=== PATIENT | male | born 1985 | race Caucasian/White ===

== ENCOUNTER 2018-08-14 15:21 | Inpatient (IN) | payer BC ==
[2018-08-14 16:04] LABS: #Basophils 0.1 thou/uL (0.0-0.2); #Eosinphils 0.3 thou/uL (0.0-0.7); #Lymphocytes 2.9 thou/uL (1.20-3.40); #Neutrophils 8.8 thou/uL (1.40-6.50); %Basophils 0.7 % (0.0-1.0); %Eosinophils 2.3 % (0.0-10.0); %Monocytes 7.8 % (0.0-10.0); %Neutrophils 67.2 % (42.0-75.0); Hemoglobin 15.1 g/dL (14.0-18.0); Mean Corpuscular HGB CONC 33.3 g/dL (32.0-36.0); Mean Corpuscular Hemoglobin 30.8 pg (27.0-31.0); Mean Corpuscular Volume 92.4 fL (78.0-98.0); Mean Platelet Volume 6.9 fL (7.4-10.4); Platelet Count 248 thou/uL (130-400); RBC Distribution Width 11.5 % (11.5-14.5); Red Blood Cell (RBC) Count 4.89 mill/uL (4.70-6.10); White Blood Cell (WBC) Count 13.1 thou/uL (4.8-10.8)
[2018-08-14 16:27] LABS: ALT (SGPT) 25 U/L (8-55); AST (SGOT) 15 U/L (5-34); Albumin 4.5 g/dL (3.5-5.0); Alkaline Phosphatase 91 U/L (40-150); Anion Gap 12 mmol/L (10-20); BUN (Urea Nitrogen) 12 mg/dL (8.9-20.6); Bilirubin, Total 0.2 mg/dL (0.2-1.2); Calc. Creatinine Clearance 0 mL/min (70-130); Calcium 9.5 mg/dL (7.8-10.44); Carbon Dioxide 24 mmol/L (22-29); Chloride 106 mmol/L (98-107); Estimated GFR-MDRD Greater than 90; Globulin 2.3 g/dL (2.4-3.5); Glucose 93 mg/dL (70-105); Lipase 46 U/L (8-78); Potassium 4.3 mmol/L (3.5-5.1); Protein, Total 6.8 g/dL (6.0-8.3); Sodium 138 mmol/L (136-145)
[2018-08-14] MEDS ORDERED: Iopamidol 370 76% 50 ML VIAL FS ONE (16:50)
[2018-08-14] MEDS ORDERED: ISOVUE-370 76%-LOCM 1 ML ONE (16:50)
--- NOTE | 2018-08-14 18:24 | CT ---
ABDOMEN CT WITH CONTRAST PELVIC CT WITH CONTRAST 08/14/18 HISTORY: Right lower quadrant pain. COMPARISON: None. FINDINGS: ABDOMEN CT: Lung bases are clear. Normal heart size. Unremarkable aorta. Portal vein and gallbladder are unremark able. Appropriate enhancement of the solid organs. No gastrohepatic, retrocrural or periportal lymphadenopathy. Symmetric enhancement of the kidneys. No obstructive uropathy. No mesenteric mass, lymphadenopathy or free air. There is a small amount of fluid in the right monse lic gutter. Gastric mucosa, duodenum, and multiple normal caliber small bowel loops are identified. Ileocecal erika ction is normal. Dilated appendix measuring 7 mm with periappendicele fat stranding. No evidence of abscess or perforation. Unremarkable colon. CT PELVIS: Unremarkable urinary bladder. No pelvic mass, lymphadenopathy, free air or free fluid. No lytic or bl astic lesions. IMPRESSION: Appendicitis. Results of the study discussed with Dr. Beebe 08/14/18 at 6:13 p.m. Code CR POS: JEN
[2018-08-14 18:36] LABS: Bilirubin Negative (Negative); Blood, Urine Negative (Negative); Clarity CLEAR (Clear); Glucose, Urine (Dipstick) Negative (Negative); Leukocyte Negative (Negative); Nitrite Negative (Negative); Protein, Urine (Dipstick) Negative (Neg-Trace); Specific Gravity, Urine 1.009 (1.002-1.036); Urobilinogen 0.2 mg/dL (0.2-1.0); pH, Urine 6.5 (5.0-9.0)
[2018-08-14] MEDS ORDERED: Piperacillin/Tazobactam 3.375 GM VIAL ONE (19:04)
[2018-08-14] MEDS ORDERED: Dextrose 5 % And 0.9 % NaCl 1,000 ML IV SCH (21:00)
[2018-08-14 21:05] VITALS: BMI 22.6
[2018-08-14] MEDS ORDERED: Ketorolac Tromethamine 30 MG/ML VIAL IVP PRN (21:29)
[2018-08-14] MEDS ORDERED: Enoxaparin Sodium 40 MG/0.4 ML SYRINGE SC SCH (21:30)
[2018-08-14] MEDS ORDERED: Acetaminophen 1,000 MG in Premix Bag 1 BAG IVPB PRN (21:30)
[2018-08-14] MEDS: Lactated Ringer's 1,000 ML IV SCH (22:06)
[2018-08-15] MEDS ORDERED: Piperacillin/Tazobactam 3.375 GM in Sodium Chloride 0.9% 100 ML IVPB SCH (02:00)
[2018-08-15] MEDS: Lactated Ringer's 1,000 ML IV SCH (06:46)
[2018-08-15] MEDS ORDERED: Bupivacaine HCl 0.5%/Epinephrine 1:200,000/PF 30 ml Vial ONE (07:41)
[2018-08-15] MEDS ORDERED: Fentanyl 100 MCG/2 ML VIAL ONE (07:46)
[2018-08-15] MEDS ORDERED: Piperacillin/Tazobactam 3.375 GM VIAL ONE (08:05)
[2018-08-15] MEDS ORDERED: Sodium Chloride 0.9% 100 ML ONE (08:05)
[2018-08-15] MEDS ORDERED: Ketorolac Tromethamine 30 MG/ML VIAL ONE (08:05)
[2018-08-15] MEDS ORDERED: Midazolam HCl 2 mg/2 ml Vial ONE (08:10)
[2018-08-15] MEDS ORDERED: traMADol HCl 50 MG TAB PO PRN ×2 (08:10)
[2018-08-15] MEDS ORDERED: Acetaminophen 500 MG TAB PO PRN (08:10)
[2018-08-15] MEDS ORDERED: Ibuprofen 600 MG TAB PO PRN (08:10)
[2018-08-15] MEDS ORDERED: Famotidine/PF 20 mg/2ml Vial ONE (08:10)
[2018-08-15] MEDS ORDERED: Promethazine HCl 25 MG/ML VIAL IM PRN (09:03)
[2018-08-15] MEDS ORDERED: HYDROmorphone 2 MG/ML VIAL SLOW IVP PRN (09:03)
[2018-08-15] MEDS ORDERED: Promethazine HCl 25 MG/ML VIAL SLOW IVP PRN (09:03)
[2018-08-15] MEDS ORDERED: Meperidine HCl/PF 25 MG/ML VIAL SLOW IVP PRN (09:03)
--- NOTE | 2018-08-15 09:28 | HP ---
HISTORY OF PRESENT ILLNESS: Parveen Hurtado is a 32-year-old male patient with 24-hour history of right lower quadrant pain, increased pain with movement, but has not suffered anorexia, nausea, or vomiting. He presents to the emergency room, noted to have a white count of 13 and hemoglobin 15. Basic metabolic profile normal. CAT scan revealing changes consistent with appendicitis. He is hospitalized overnight, given intravenous antibiotics, analgesics, and plan is for laparoscopic video appendectomy today. ALLERGIES: NONE. TOBACCO: One pack per day. ALCOHOL: Rarely. MEDICATIONS: Vyvanse. PAST SURGICAL HISTORY: Noncontributory. PAST MEDICAL HISTORY: ADHD. REVIEW OF SYSTEMS: 10-point noncontributory. PHYSICAL EXAMINATION: VITAL SIGNS: 97.9, 68, 108/68, and 114/69. 5 feet 10 inches, 158 pounds, 22 BMI. HEAD, EARS, EYES, NOSE, AND THROAT: Unremarkable. LUNGS: Clear to auscultation. CARDIAC: Regular rate and rhythm. No murmur or gallop. ABDOMEN: Soft. Tenderness in right lower quadrant, guarding, rebound. EXTREMITIES: Unremarkable. NEUROLOGICAL: No focal deficit. No ankle edema. No lymphadenopathy. ASSESSMENT AND PLAN: Appendicitis. Recommend laparoscopic video appendectomy. Risks and benefits explained. He consents. Job ID: [id number]
--- NOTE | 2018-08-15 09:31 | DIS ---
DATE OF ADMISSION: 08/14/2018 DATE OF DISCHARGE: 08/15/2018 DISCHARGE DIAGNOSIS: Appendicitis. PROCEDURE PERFORMED: Laparoscopic video appendectomy and CAT scan in the emergency room. HISTORY: A 32-year-old male with less than 24-hour history of right lower quadrant pain, increased pain with movement, had a white count of 13,000 and a CAT scan demonstrated appendicitis. Hospitalized overnight, received these antibiotics, undergone laparoscopic video appendectomy and discharged home on the day of surgery. Follow up in my office in 2 to 3 weeks. Diet and activity as tolerated. No activity restrictions. Home with Tylenol, Motrin and Ultram p.r.n. pain. No activity lifting restrictions. Job ID: [id number]
--- NOTE | 2018-08-15 09:32 | OP ---
DATE OF PROCEDURE: 08/15/2018 PREOPERATIVE DIAGNOSIS: Acute appendicitis. POSTOPERATIVE DIAGNOSIS: Acute appendicitis. PROCEDURE PERFORMED: Laparoscopic video appendectomy. ANESTHESIA: General, local 0.5% Marcaine with epinephrine of 30 mL. DESCRIPTION OF PROCEDURE: The patient was taken to the operating room under general anesthesia, abdomen was clipped of hair, prepared with ChloraPrep and draped in routine fashion. Naranjo catheter placed at the beginning of the procedure and removed at the end. 0.5% Marcaine with epinephrine was infiltrated in the skin and subcutaneous tissue about each port site. Infraumbilical incision made. Pneumoperitoneum to 15 mmHg obtained with a Veress needle, replaced with a 5 port and the laparoscope inserted. Right lateral subcostal incision made and a 5 port placed. Suprapubic incision made and a 12 port placed. Appendix was acutely inflamed. Mesoappendix was taken down with the LigaSure. The stump of the appendix divided the appendix with Endo-FARZANA blue load stapler. Stapled cecal stump was hemostatic and secured. Appendix was removed. Irrigant and pneumoperitoneum evacuated. Good hemostasis had been obtained and all instruments were removed and suprapubic fascia was approximated with 0 Vicryl UR needle and all skin incisions were approximated with interrupted subdermal 4-0 Monocryl and Tenstrike glue applied. The patient tolerated procedure well. Job ID: [id number]
[2018-08-15 11:57] VITALS: BP 113/75; TEMP 97.2
[2018-08-15] MEDS ORDERED: Ondansetron PF 4 MG/2 ML Vial ONE (13:17)
[2018-08-15] MEDS ORDERED: Succinylcholine Chloride 20 MG/ML 10 ml SYRINGE FS ONE (13:17)
[2018-08-15] MEDS ORDERED: Lidocaine 1% PF 5 ML VIAL ONE (13:17)
[2018-08-15] MEDS ORDERED: Rocuronium Bromide 10 MG/ML (10ML VIAL) ONE (13:17)
[2018-08-15] MEDS ORDERED: Glycopyrrolate 0.2 MG/ML 5 ML SYRINGE ONE (13:17)
[2018-08-15] MEDS ORDERED: Dexamethasone 20 MG/5 ML VIAL ONE (13:17)
[2018-08-15] MEDS ORDERED: PROPOFOL 200 MG/20 ML VIAL ONE (13:17)
== END 2018-08-15 12:23 | disposition home or self-care (01) | DRG 343 ==
LOC: ERS 15:21 → SURG B 19:59
PROVIDERS: ADMIT Specialist; ATTEND Specialist
PROC: 0DTJ4ZZ Resection of Appendix, Percutaneous Endoscopic Approach (ICD-10-PCS; principal; 2018-08-15)
DX: K35.80 Unspecified acute appendicitis (principal)
CPT/HCPCS: 36415; 74177; 80053; 81003; 83690; 85025; J0131; J0670; J1100; J1650; J1885; J2001; J2250; J2405; J2543; J2704; J3010; J7050; S0028